=== PATIENT | female | born 1950 | race Caucasian/White ===

== ENCOUNTER 2016-12-16 09:35 | Outpatient (CLI) | payer MEDICARE ==
--- NOTE | 2016-12-16 13:29 | DIAGNOSTIC IMAGING REPORT ---
PROCEDURE: US NONVASCULAR EXTREMITY-LEFT INDICATION: LT KNEE OLIVIER'S CYST TECHNIQUE: Amado scale ultrasound of the left popliteal fossa. COMPARISON: None. FINDINGS: No evidence of mass or fluid collection. Normal muscular structures. Normal compression of the popliteal vein. IMPRESSION: 1. Normal left popliteal fossa.
== END 2016-12-16 23:00 ==
LOC: US SRH 09:35
DX: M71.22 Synovial cyst of popliteal space [Baker], left knee (principal)